=== PATIENT | male | born 1945 | race Hispanic/Latino ===

== ENCOUNTER 2019-07-17 09:57 | Emergency (ER) | payer MEDICARE ==
[2019-07-17] MEDS ORDERED: Ibuprofen 800 MG TAB ONE (11:13)
[2019-07-17] MEDS ORDERED: HYDROcodone/Acetaminophen 5/325 mg Tablet ONE (11:13)
--- NOTE | 2019-07-17 11:32 | RAD ---
LEFT ELBOW 3 VIEWS: Date: HISTORY: Elbow pain. FINDINGS: There are severe degenerative changes at the elbow. Prominent hypertrophic changes at the elbow with osteophytes and joint narrowing. No significant joint effusion. No fracture or acute abnormality. 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 POS: AGW
== END 2019-07-17 11:53 | disposition home or self-care (01) ==
LOC: BURERS 09:57
DX: M19.022 Primary osteoarthritis, left elbow (principal); M77.12 Lateral epicondylitis, left elbow; E11.9 Type 2 diabetes mellitus without complications; Z87.891 Personal history of nicotine dependence; Z79.899 Other long term (current) drug therapy; Z79.82 Long term (current) use of aspirin; Z79.84 Long term (current) use of oral hypoglycemic drugs

== ENCOUNTER 2019-09-27 13:13 | Emergency (ER) | payer MEDICARE ==
[2019-09-27 14:10] LABS: #Lymphocytes 1.2 thou/uL (1.20-3.40); #Monocytes 0.2 thou/uL (0.11-0.59); #Neutrophils 6.9 thou/uL (1.40-6.50); %Basophils 0.3 % (0.0-1.0); %Eosinophils 0.1 % (0.0-10.0); %Monocytes 2.8 % (0.0-10.0); %Neutrophils 82.8 % (42.0-75.0); Hemoglobin 16.3 g/dL (14.0-18.0); Mean Corpuscular HGB CONC 32.6 g/dL (32.0-36.0); Mean Corpuscular Hemoglobin 31.2 pg (27.0-31.0); Mean Corpuscular Volume 95.6 fL (78.0-98.0); Mean Platelet Volume 7.9 fL (7.4-10.4); Platelet Count 188 thou/uL (130-400); RBC Distribution Width 10.5 % (11.5-14.5); Red Blood Cell (RBC) Count 5.23 mill/uL (4.70-6.10); White Blood Cell (WBC) Count 8.4 thou/uL (4.8-10.8)
[2019-09-27 14:17] LABS: PTT 30.9 sec (22.9-36.1); Prothrombin Time 13.2 sec (12.0-14.7)
[2019-09-27 14:23] LABS: Base Excess-Venous 1.4 mmol/L (-2.0 to 3.0); Bicarbonate (HCO3v) 26.5 mmol/L (22.0-28.0); CO2 Tension (PvCO2) 42.5 mmHg (40.0-50.0); Calcium, Ionized 1.09 mmol/L (See Comments:); Chloride 101 mmol/L (98-107); Hemoglobin - Calc 17.2 g/dL (14.0-18.0); Potassium 4.6 mmol/L (3.5-5.1); Sodium 136 mmol/L (138-145); T. Carbon Dioxide 27.8 mmol/L (22.0-28.0); vO2 Saturation-calc 81.3 % (60.0-85.0)
[2019-09-27 14:27] LABS: ALT (SGPT) 33 U/L (8-55); AST (SGOT) 29 U/L (5-34); Alkaline Phosphatase 64 U/L (40-110); Anion Gap 16 mmol/L (10-20); BUN (Urea Nitrogen) 19 mg/dL (8.4-25.7); Bilirubin, Total 0.5 mg/dL (0.2-1.2); Calc. Creatinine Clearance 0 mL/min (70-130); Calcium 8.3 mg/dL (7.8-10.44); Carbon Dioxide 25 mmol/L (23-31); Chloride 97 mmol/L (98-107); Estimated GFR-MDRD Greater than 90; Glucose 389 mg/dL (83-110); Lipase 35 U/L (8-78); Potassium 4.4 mmol/L (3.5-5.1); Sodium 134 mmol/L (136-145)
--- NOTE | 2019-09-27 14:32 | CT ---
Exam: Head CT without contrast HISTORY: Altered mental status COMPARISON: none FINDINGS: Hemorrhage: No intraparenchymal hemorrhage or extra-axial hematoma. Brain parenchyma: Cortical medel-white matter differentiation is preserved. No mass effect or midline shift. Basilar cisterns are patent. Ventricular system: Ventricles and sulci are patent and symmetric. Calvarium: Intact. Sinuses and mastoid air cells: Adequate aeration. IMPRESSION: No acute intracranial process.
--- NOTE | 2019-09-27 14:33 | RAD ---
EXAM: Chest PA and lateral: HISTORY: Altered mental status COMPARISON: None FINDINGS: Heart: Cardiomegaly. Aorta: Unremarkable Pulmonary vessels: Normal Costophrenic angles: Costophrenic angles are clear. Lungs: Bibasilar interstitial and alveolar opacities. Obscuration of the right heart border likely du e to a prominent epicardial fat pad. Pneumothorax: No pneumothorax Osseous structures: No osseous abnormalities IMPRESSION: Bibasilar interstitial and alveolar infiltrates.
[2019-09-27 14:34] LABS: Bilirubin Negative (Negative); Blood, Urine Negative (Negative); Clarity Clear (Clear); Glucose, Urine (Dipstick) 500 mg/dL (Negative); Ketone, Urine Negative (Negative); Leukocyte Negative (Negative); Nitrite Negative (Negative); Protein, Urine (Dipstick) Trace mg/dL (Neg-Trace); pH, Urine 5.5 (5.0-9.0)
[2019-09-27] MEDS ORDERED: Azithromycin 500 MG VIAL ONE ×3 (14:55→15:26)
[2019-09-27] MEDS ORDERED: Insulin Regular 300 UNITS/3 ML VIAL ONE (14:55)
[2019-09-27] MEDS ORDERED: cefTRIAXone\\ROCEPHIN 1 GM VIAL ONE ×2 (14:55→14:56)
[2019-09-27] MEDS ORDERED: Sodium Chloride 0.9% 100 ML ONE (14:58)
== END 2019-09-27 15:45 | disposition short-term general hospital (02) ==
LOC: BURERS 13:13
DX: J18.9 Pneumonia, unspecified organism (principal); G93.40 Encephalopathy, unspecified; E11.9 Type 2 diabetes mellitus without complications; Z87.891 Personal history of nicotine dependence; Z79.899 Other long term (current) drug therapy; Z79.84 Long term (current) use of oral hypoglycemic drugs
CPT/HCPCS: 36415; 36416; 70450; 71046; 80053; 81003; 82140; 82330; 82803; 83605; 83690; 83880; 84484; 85025; 85610; 85730; 87040; 93005; 96374; 96375; J0456; J0696; J1815; J3490

== ENCOUNTER 2021-04-17 10:07 | Outpatient (CLI) | payer MEDICARE | END 2021-04-17 10:08 | disposition home or self-care (01) | LOC: BURRAD 10:07 | PROVIDERS: ATTEND Physician Assistant | DX: M17.0 Bilateral primary osteoarthritis of knee (principal) ==

== ENCOUNTER 2023-10-07 10:24 | Emergency (ER) | payer MEDICARE ==
[2023-10-07] MEDS ORDERED: Acetaminophen 500 MG TAB ONE (10:46)
[2023-10-07] MEDS ORDERED: Piperacillin/Tazobactam 3.375 GM VIAL ONE (10:52)
[2023-10-07] MEDS ORDERED: Sodium Chloride 0.9% 100 ML ONE (10:52)
[2023-10-07 11:02] LABS: #Basophils 0.1 thou/uL (0.0-0.2); #Eosinphils 0.1 thou/uL (0.0-0.7); #Lymphocytes 2.1 thou/uL (1.20-3.40); #Monocytes 0.5 thou/uL (0.11-0.59); #Neutrophils 5.5 thou/uL (1.40-6.50); %Basophils 1.1 % (0.0-1.0); %Eosinophils 0.7 % (0.0-10.0); %Lymphocytes 25.5 % (21.0-51.0); %Monocytes 5.8 % (0.0-10.0); %Neutrophils 66.9 % (42.0-75.0); Hematocrit 51.3 % (42.0-52.0); Hemoglobin 17.8 g/dL (14.0-18.0); Mean Corpuscular HGB CONC 34.7 g/dL (32.0-36.0); Mean Corpuscular Hemoglobin 30.8 pg (27.0-31.0); Mean Corpuscular Volume 88.7 fl (78.0-98.0); Mean Platelet Volume 7.2 fL (7.4-10.4); Platelet Count 182 10x3/uL (130-400); RBC Distribution Width 11.1 % (11.5-14.5); Red Blood Cell (RBC) Count 5.79 mill/uL (4.70-6.10); White Blood Cell (WBC) Count 8.2 10x3/uL (4.8-10.8)
[2023-10-07 11:16] LABS: ALT (SGPT) 15 U/L (8-55); AST (SGOT) 11 U/L (5-34); Alkaline Phosphatase 107 U/L (40-110); Anion Gap 14 mmol/L (10-20); BUN (Urea Nitrogen) 18 mg/dL (8.4-25.7); Calc. Creatinine Clearance 0 mL/min (70-130); Calcium 9.7 mg/dL (7.8-10.44); Carbon Dioxide 25 mmol/L (23-31); Chloride 98 mmol/L (98-107); Estimated GFR 64; Potassium 4.4 mmol/L (3.5-5.1); Sodium 133 mmol/L (136-145)
[2023-10-07 11:17] LABS: Glucose 440 mg/dL (83-110)
[2023-10-07] MEDS ORDERED: Insulin Regular 300 UNITS/3 ML VIAL ONE (11:20)
[2023-10-07 11:30] LABS: Bilirubin Negative (Negative); Blood, Urine Negative (Negative); Clarity Clear (Clear); Glucose, Urine (Dipstick) 500 mg/dL (Negative); Ketone, Urine Negative (Negative); Leukocyte Negative (Negative); Nitrite Negative (Negative); Protein, Urine (Dipstick) Negative (Neg-Trace); Specific Gravity, Urine 1.015 (1.005-1.030)
[2023-10-07 11:42] LABS: Bacteria/HPF None Seen HPF (None Seen); CAUTI Indications for Culture Dysuria,urgency,freq; RBC/HPF None Seen HPF (0-3); Squamous Epithelial 0-3 HPF (0-3); WBC/HPF None Seen HPF (0-3)
[2023-10-07 11:44] LABS: Urine Culture Reflex No No
[2023-10-07] MEDS ORDERED: Vancomycin 1 GM VIAL ONE (11:55)
[2023-10-07] MEDS ORDERED: Iopamidol 370 76% 100 ML VIAL ONE (12:18)
== END 2023-10-07 14:30 | disposition short-term general hospital (02) ==
LOC: BURERS 10:24
DX: N50.82 Scrotal pain (principal); K40.90 Unilateral inguinal hernia, without obstruction or gangrene, not specified as recurrent; E11.65 Type 2 diabetes mellitus with hyperglycemia; I10 Essential (primary) hypertension; K74.60 Unspecified cirrhosis of liver; Z87.891 Personal history of nicotine dependence
CPT/HCPCS: 36415; 36416; 74177; 80053; 81001; 85025; 87040; 96361; 96365; 96366; 96375; J1815; J2543; J3370; Q9967

== ENCOUNTER 2024-09-07 12:45 | Emergency (ER) | payer MEDICARE | END 2024-09-07 14:37 | disposition home or self-care (01) | LOC: BURERS 12:45 | DX: N47.2 Paraphimosis (principal); B37.42 Candidal balanitis; I10 Essential (primary) hypertension; E11.9 Type 2 diabetes mellitus without complications; Z87.891 Personal history of nicotine dependence | CPT/HCPCS: 99283 ==